=== PATIENT | female | born 1940 | race Caucasian/White ===

== ENCOUNTER 2021-02-20 20:13 | Outpatient (REF) | payer OTHER, MEDICAID, SELFPAY ==
[2021-02-20 18:48] LABS: HCT 41.3 % (36.0-46.0); HGB 13.5 g/dL (11.2-15.7); MCH 32.7 pg (27.0-33.0); MCHC 32.7 % (32.0-36.0); MPV 10.9 fL (8.0-11.0); Platelet Count 175 10^3/uL (130-400); RBC 4.13 10^6/uL (3.93-5.22); RDW 12.1 % (11.7-14.6); RDW-SD 44.9 fL; WBC 5.24 10^3/uL (4.4-10.8)
[2021-02-20 19:07] LABS: ALT 20 U/L (14-59); AST 20 U/L (15-37); Albumin 4.1 g/dL (3.4-5.0); Alkaline Phosphatase 67 U/L (46-116); Anion Gap 5.2 mmol/L (3-11); BUN 14 mg/dL (7-18); Bilirubin, Total 0.3 mg/dL (0.2-1.0); CO2 32.8 mmol/L (21.0-32.0); CREATININE 1.1 mg/dL (0.55-1.02); Calcium 9.7 mg/dL (8.5-10.1); Chloride 108 mmol/L (98-107); Estimated GFR 47.67 (mL/min/1.73m2); Glucose 150 mg/dL (74-106); Potassium 4.2 mmol/L (3.5-5.1); Sodium 146 mmol/L (136-145); TSH 1.63 uIU/mL (0.36-3.74); Total Protein 7.3 g/dL (6.4-8.2)
[2021-02-23 08:35] LABS: IgA 270 mg/dL (85-499)
[2021-02-23 15:20] LABS: Albumin 59.8 % (55.8-66.1); Comment (See Note); Monoclonal Spike 2.6 % (None Seen); Total Protein 7.2 g/dL (6.3-8.2)
[2021-02-23 20:25] LABS: Tissue Transglutaminase Ab IgA <1.2 U/mL
[2021-03-02 12:54] LABS: Immunotyping, Serum (See Note)
== END 2021-02-20 20:14 | disposition home or self-care (01) ==
LOC: NCHCN 20:13
PROVIDERS: Visit Provider Internal Medicine
DX: R63.4 Abnormal weight loss (principal); E11.9 Type 2 diabetes mellitus without complications; K58.9 Irritable bowel syndrome, unspecified; M25.511 Pain in right shoulder
CPT/HCPCS: 80053; 82784; 85027; 83516; 84165; 84443; 86320

== ENCOUNTER 2021-05-29 12:25 | Outpatient (REF) | payer OTHER, MEDICAID, SELFPAY ==
[2021-05-29 18:38] LABS: COMMENT (LAB VIEW ONLY) 45.81 mg/dL; Microalb ug/mg Crea 15.7 ug/mg Cr
== END 2021-05-29 12:26 | disposition home or self-care (01) ==
LOC: NCHCN 12:25
PROVIDERS: Visit Provider Internal Medicine
DX: E11.9 Type 2 diabetes mellitus without complications (principal); I73.9 Peripheral vascular disease, unspecified; R63.4 Abnormal weight loss
CPT/HCPCS: 82043; 82570

== ENCOUNTER 2021-08-28 13:54 | Outpatient (REF) | payer OTHER, MEDICAID, SELFPAY ==
[2021-08-31 09:40] LABS: PSA, Diagnostic 10.5 ng/mL
== END 2021-08-28 13:55 | disposition home or self-care (01) ==
LOC: NCHCN 13:54
PROVIDERS: Visit Provider Internal Medicine
DX: R97.20 Elevated prostate specific antigen [PSA] (principal)
CPT/HCPCS: 84153

== ENCOUNTER 2021-12-23 18:36 | Outpatient (REF) | payer OTHER, MEDICAID, SELFPAY ==
[2021-12-23 22:14] LABS: HGB 14.1 g/dL (13.5-17.5); MCH 32.8 pg (27.0-33.0); MCHC 32.8 % (32.0-36.0); MPV 11.2 fL (8.0-11.0); Platelet Count 167 10^3/uL (130-400); RDW 12.3 % (11.8-14.1); RDW-SD 45.9 fL; WBC 5.76 10^3/uL (4.4-10.8)
[2021-12-23 22:35] LABS: ALT 23 U/L (16-63); AST 27 U/L (15-37); Alkaline Phosphatase 73 U/L (46-116); Anion Gap 6.1 mmol/L (3-11); BUN 18 mg/dL (7-18); Bilirubin, Total 0.3 mg/dL (0.2-1.0); CO2 30.9 mmol/L (21.0-32.0); CREATININE 1.1 mg/dL (0.70-1.30); Calcium 9.5 mg/dL (8.5-10.1); Chloride 107 mmol/L (98-107); Glucose 144 mg/dL (74-106); Potassium 4.6 mmol/L (3.5-5.1); Sodium 144 mmol/L (136-145); TSH 2.38 uIU/mL (0.36-3.74); Total Protein 7.2 g/dL (6.4-8.2)
[2021-12-24 18:50] LABS: PSA, Diagnostic 11.2 ng/mL (0.0-6.5)
== END 2021-12-23 18:37 | disposition home or self-care (01) ==
LOC: NCHCN 18:36
PROVIDERS: Visit Provider Internal Medicine
DX: E11.9 Type 2 diabetes mellitus without complications (principal); K58.9 Irritable bowel syndrome, unspecified; N40.0 Benign prostatic hyperplasia without lower urinary tract symptoms
CPT/HCPCS: 80053; 85027; 84153; 84443

== ENCOUNTER 2022-03-24 20:43 | Outpatient (REF) | payer MEDICARE, MEDICAID, SELFPAY ==
[2022-03-24 22:41] LABS: COMMENT (LAB VIEW ONLY) 111.61 mg/dL; Microalb ug/mg Crea 12.7 ug/mg Cr
== END 2022-03-24 20:44 | disposition home or self-care (01) ==
LOC: NCHCN 20:43
PROVIDERS: Visit Provider Internal Medicine
DX: E11.9 Type 2 diabetes mellitus without complications (principal); K58.9 Irritable bowel syndrome, unspecified
CPT/HCPCS: 82043; 82570

== ENCOUNTER 2023-01-27 16:13 | Outpatient (REF) | payer MEDICARE, MEDICAID, SELFPAY ==
[2023-01-27 19:09] LABS: ESR 16 mm/hr (0-20)
[2023-01-27 19:10] LABS: HGB 13.9 g/dL (13.5-17.5); MCH 34.4 pg (27.0-33.0); MCHC 34.8 % (32.0-36.0); MCV 99 fL (80-95); MPV 10.7 fL (8.0-11.0); Platelet Count 204 10^3/uL (130-400); RBC 4.04 10^6/uL (4.36-5.78); RDW 12.6 % (11.8-14.1); RDW-SD 46.2 fL; WBC 5.61 10^3/uL (4.4-10.8)
[2023-01-27 19:34] LABS: ALT 21 U/L (16-63); Anion Gap 5.3 mmol/L (3-11); BUN 23 mg/dL (7-18); C-Reactive Protein < 0.05 mg/dL (0.0-0.3); CO2 30.7 mmol/L (21.0-32.0); CREATININE 1.1 mg/dL (0.70-1.30); Calcium 9.7 mg/dL (8.5-10.1); Chloride 108 mmol/L (98-107); Creatine Kinase 69 U/L (39-308); Estimated GFR 66.61 (mL/min/1.73m2); Glucose 123 mg/dL (74-106); Potassium 4.4 mmol/L (3.5-5.1); Sodium 144 mmol/L (136-145)
[2023-01-28 19:53] LABS: Rheumatoid Factor <8.6 IU/mL (<12.0)
[2023-01-28 20:55] LABS: PSA, Screening 11.4 ng/mL (<=6.5)
== END 2023-01-27 16:14 | disposition home or self-care (01) ==
LOC: NCHCN 16:13
PROVIDERS: PCP Internal Medicine; Visit Provider Internal Medicine
DX: M60.88 Other myositis, other site (principal); F33.0 Major depressive disorder, recurrent, mild; E11.9 Type 2 diabetes mellitus without complications; N40.0 Benign prostatic hyperplasia without lower urinary tract symptoms; Z12.5 Encounter for screening for malignant neoplasm of prostate
CPT/HCPCS: 80048; 82550; 84153; 85027; 85652; 84443; 84460; 86140; 86431

== ENCOUNTER 2023-11-23 17:37 | Outpatient (REF) | payer MEDICARE, MEDICAID, SELFPAY ==
[2023-11-23 20:30] LABS: HCT 40.2 % (40.0-50.0); HGB 13.3 g/dL (13.5-17.5); MCH 32.3 pg (27.0-33.0); MCHC 33.1 % (32.0-36.0); MCV 98 fL (80-95); MPV 10.4 fL (8.0-11.0); Platelet Count 141 10^3/uL (130-400); RBC 4.12 10^6/uL (4.36-5.78); RDW 12.4 % (11.8-14.1); WBC 6.06 10^3/uL (4.4-10.8)
[2023-11-23 20:37] LABS: ESR 8 mm/hr (0-20)
[2023-11-23 20:48] LABS: ALT 28 U/L (16-63); AST 40 U/L (15-37); Albumin 4.1 g/dL (3.4-5.0); Alkaline Phosphatase 49 U/L (46-116); Anion Gap 5.5 mmol/L (3-11); BUN 19 mg/dL (7-18); Bilirubin, Total 0.4 mg/dL (0.2-1.0); CO2 31.5 mmol/L (21.0-32.0); CREATININE 1.1 mg/dL (0.70-1.30); Calcium 9.6 mg/dL (8.5-10.1); Calculated LDL 56 mg/dL (<100); Chloride 105 mmol/L (98-107); Cholesterol 116 mg/dL (<200); Estimated GFR 66.19 (mL/min/1.73m2); Glucose 125 mg/dL (74-106); HDL Cholesterol 44 mg/dL (40-60); Potassium 4.3 mmol/L (3.5-5.1); Sodium 142 mmol/L (136-145); TSH 2.83 uIU/mL (0.36-3.74); Total Protein 7.3 g/dL (6.4-8.2); Triglyceride 84 mg/dL (<150)
== END 2023-11-23 17:38 | disposition home or self-care (01) ==
LOC: NCHCN 17:37
PROVIDERS: PCP Internal Medicine; Visit Provider Internal Medicine
DX: E78.5 Hyperlipidemia, unspecified (principal); R63.4 Abnormal weight loss; M60.9 Myositis, unspecified; E11.9 Type 2 diabetes mellitus without complications
CPT/HCPCS: 80053; 80061; 85027; 85652; 84443

== ENCOUNTER 2024-02-16 15:26 | Outpatient (REF) | payer MEDICARE, MEDICAID, SELFPAY ==
[2024-02-17 19:11] LABS: PSA, Screening 15.6 ng/mL (<=6.5)
[2024-02-20 13:43] LABS: Albumin 61.9 % (55.8-66.1); Albumin g/dL 4.3 g/dL (3.6-5.2); Comment (See Note); Monoclonal Spike 3.8 % (None Seen); Monoclonal Spike g/dL 0.3 g/dL (None Seen)
== END 2024-02-16 15:27 | disposition home or self-care (01) ==
LOC: NCHCN 15:26
PROVIDERS: PCP Internal Medicine; Visit Provider Internal Medicine
DX: D47.2 Monoclonal gammopathy (principal); N40.0 Benign prostatic hyperplasia without lower urinary tract symptoms; Z12.5 Encounter for screening for malignant neoplasm of prostate
CPT/HCPCS: 84153; 84165

== ENCOUNTER 2024-09-13 13:07 | Outpatient (REF) | payer MEDICARE, MEDICAID, SELFPAY ==
[2024-09-13 19:34] LABS: ALT 29 U/L (16-63); AST 32 U/L (15-37); Albumin 3.9 g/dL (3.4-5.0); Alkaline Phosphatase 60 U/L (46-116); Anion Gap 5.3 mmol/L (3-11); BUN 19 mg/dL (7-18); Bilirubin, Total 0.53 mg/dL (0.2-1.0); CO2 31.7 mmol/L (21.0-32.0); CREATININE 1.2 mg/dL (0.70-1.30); Calcium 9.6 mg/dL (8.5-10.1); Chloride 108 mmol/L (98-107); Estimated GFR 59.26 (mL/min/1.73m2); Glucose 178 mg/dL (74-106); Potassium 4.1 mmol/L (3.5-5.1); Sodium 145 mmol/L (136-145); Total Protein 7.3 g/dL (6.4-8.2)
[2024-09-14 18:10] LABS: PSA, Screening 6.9 ng/mL (<=6.5)
== END 2024-09-13 13:08 | disposition home or self-care (01) ==
LOC: NCHCN 13:07
PROVIDERS: PCP Internal Medicine; Visit Provider Internal Medicine
DX: R97.20 Elevated prostate specific antigen [PSA] (principal)
CPT/HCPCS: 80053; 84153

== ENCOUNTER 2025-01-11 16:12 | Outpatient (REF) | payer MEDICARE, MEDICAID, SELFPAY ==
[2025-01-11 19:14] LABS: Abs Immature Grans 0.01 10^3/uL (0.0-0.06); Absolute Basophil Count 0.04 10^3/uL (0.0-0.2); Absolute Eosinophil Count 0.07 10^3/uL (0.0-0.7); Absolute Lymphocyte Count 1.33 10^3/uL (1.2-3.4); Absolute Monocyte Count 0.53 10^3/uL (0.1-0.8); Absolute Neutrophil Count 2.87 10^3/uL (1.2-6.7); Basophils % 0.8 %; Eosinophils % 1.4 %; HCT 41.3 % (40.0-50.0); HGB 13.6 g/dL (13.5-17.5); Immature Grans % 0.2 %; Lymphocytes % 27.4 %; MCH 32.7 pg (27.0-33.0); MCHC 32.9 % (32.0-36.0); MCV 99 fL (80-95); MPV 10.4 fL (8.0-11.0); Monocytes % 10.9 %; Neutrophils % 59.3 %; Platelet Count 156 10^3/uL (130-400); RBC 4.16 10^6/uL (4.36-5.78); RDW 12.4 % (11.8-14.1); RDW-SD 45.6 fL; WBC 4.85 10^3/uL (4.4-10.8)
[2025-01-14 11:42] LABS: PSA, Diagnostic 6.2 ng/mL (<=6.5)
[2025-01-14 13:59] LABS: Albumin 59.2 % (55.8-66.1); Albumin g/dL 4.2 g/dL (3.6-5.2); Comment (See Note); Monoclonal Spike 3.6 % (None Seen); Monoclonal Spike g/dL 0.3 g/dL (None Seen); Total Protein 7.1 g/dL (6.3-8.2)
== END 2025-01-11 16:13 | disposition home or self-care (01) ==
LOC: NCHCN 16:12
PROVIDERS: PCP Internal Medicine; Visit Provider Internal Medicine
DX: D47.2 Monoclonal gammopathy (principal); N40.0 Benign prostatic hyperplasia without lower urinary tract symptoms
CPT/HCPCS: 84153; 84165; 85025

== ENCOUNTER 2025-04-24 20:41 | Outpatient (REF) | payer MEDICARE, MEDICAID, SELFPAY ==
[2025-04-24 20:44] LABS: C & S Indicated? No
== END 2025-04-24 20:42 | disposition home or self-care (01) ==
LOC: NCHCN 20:41
PROVIDERS: PCP Internal Medicine; Visit Provider Internal Medicine
DX: N40.0 Benign prostatic hyperplasia without lower urinary tract symptoms (principal)
CPT/HCPCS: 81015

== ENCOUNTER 2025-09-03 14:52 | Outpatient (REF) | payer MEDICARE, MEDICAID, SELFPAY ==
[2025-09-03 20:09] LABS: Microalb ug/mg Crea 9.4 ug/mg Cr
== END 2025-09-03 14:53 | disposition home or self-care (01) ==
LOC: NCHCN 14:52
PROVIDERS: PCP Internal Medicine; Visit Provider Nurse Practitioner
DX: E11.9 Type 2 diabetes mellitus without complications (principal)
CPT/HCPCS: 82043; 82570